=== PATIENT | female | born 1950 | race Caucasian/White ===

== ENCOUNTER 2024-12-10 20:01 | Emergency (ER) | payer OTHER, SELFPAY ==
[2024-12-10 20:08] VITALS: BP 162/102
[2024-12-10 20:56] LABS: ALT (SGPT) 14 U/L (0-35); AST (SGOT) 21 U/L (14-36); Albumin 4.3 g/dl (3.5-5.0); Alkaline Phosphatase 86 U/L (38-126); Blood Urea Nitrogen 21 mg/dl (7-17); Calcium 9.1 mg/dl (8.4-10.2); Carbon Dioxide 25 mmol/L (22-30); Chloride 104 mmol/L (98-107); Glucose 131 mg/dl (70-99); Potassium 4.8 mmol/L (3.5-5.1); Sodium 135 mmol/L (135-145); Total Protein 6.6 g/dl (6.3-8.2); eGFR > 60.00
[2024-12-10 21:05] LABS: Troponin I < 0.012 ng/ml
[2024-12-10 23:27] VITALS: BP 169/94
[2024-12-10 23:33] VITALS: BMI 26.1
[2024-12-11] VITALS: BP 168/88
[2024-12-11 01:00] VITALS: BP 186/110
--- NOTE | 2024-12-11 01:47 | ED.GENMED ---
History of Present Illness
General
Chief Complaint: Blood Pressure Problem
Source: patient
Exam Limitations: none
Time Seen by Provider: 12/11/24 00:42
Nursing documentation reviewed up to this point in time: agreed with
History of Present Illness
History of Present Illness:
74-year-old female past medical history of hypertension hyperlipidemia presenting to the emergency department today with concerns of elevated blood pressure over the past few days. Went to urgent care recently for an injury had a blood pressure in
the 180s over 110s and has been checking this multiple times daily since. Blood pressure in the 160s over 100s today but prompted to come to the ER. Patient is asymptomatic has no chest pain shortness of breath numbness weakness changes in
urination changes in vision or headache. Does have a history of high blood pressure and recently discontinued losartan.
Review of Systems
Review of Systems
Allergies reviewed?: Yes
All Other Systems: ROS reviewed and negative except as documented in HPI and ROS
Phy Exam
Physical Exam
Physical Exam:
GENERAL: Alert , in no apparent distress
EYE: pupils equal and reactive
NECK: Supple, no significant adenopathy.
ENT: o/p clr, mmm.
CARDIAC: Regular rate and rhythm .
LUNGS: Clear breath sounds bilaterally, no acute respiratory distress, no wheezes/rales/rhonchi
ABDOMEN: Soft, without focal tenderness, no r/g, no cvat
NEUROLOGICAL: Alert and oriented, no focal neuro deficits
SKIN: Warm and dry, skin intact.
MUSCULOSKELETAL: No edema, well perfused.
PSYCH: Normal and appropriate interaction.
Course
Orders/Labs/Results
Orders:
Orders
12/10/24 20:13
Electrocardiogram (*1) Urgent
Reason for Study: Chest Pain
EKG- Treatment ONCE
12/10/24 20:31
Comprehensive Metabolic Panel Urgent
Troponin I Urgent
12/10/24 20:53
Complete Blood Count/With Diff Urgent
12/11/24 01:43
Losartan [Cozaar] 25 mg PO NOW STA
12/11/24 01:47
Losartan [Cozaar] 25 mg PO NOW STA
Abnormal Lab Results
12/10/24
20:31
BUN 21 H mg/dl
(7-17)
Glucose 131 H mg/dl
(70-99)
12/10/24 20:31
Vital Signs
Initial and Last Documented VS:
Initial Vital Signs
Temp Pulse Resp BP Pulse Ox
97.6 F 76 16 162/102 97
12/10/24 20:08 12/10/24 20:08 12/10/24 20:08 12/10/24 20:08 12/10/24 20:08
Last Documented Vital Signs
Temp Pulse Resp BP Pulse Ox
98.1 F 70 18 169/94 97
12/10/24 23:27 12/10/24 23:30 12/10/24 23:30 12/10/24 23:27 12/10/24 23:30
MDM/Problems Addressed
MDM/Problems Addressed:
74-year-old female presenting to the emergency department today with concerns of elevated blood pressure at home. Patient is asymptomatic. Blood pressure in 160s over low 100s here other vital signs are normal. Labs unremarkable. EKG normal. No
evidence of any emergent pathology at this time. She recently discontinued losartan. Plan to restart that medication. Otherwise will need close outpatient follow-up. Return precautions given.
*Pulse Oximetry
SaO2: 97
Oxygen Mode of Delivery: Room air
Patient hypoxic: no (97)
*Critical Care Note
Total Time (30-74mins, 75-104mins- exclusive of procedures): Not Applicable
ED Attending Note
-
Portions of this chart may have been created with voice recognition software.� Occasional wrong word or��sound alike� substitutions may have occurred due to the inherent limitations of voice recognition software.
Discharge Plan
Departure
Patient Disposition: Home (Routine Discharge)
Date of Disposition: 12/11/24
Time of Disposition: 01:50
Patient with high blood pressure during this ER visit?: Yes
Condition: Good
Covid-19: Not Applicable
Discharge Problem:
High blood pressure
Instructions: BLOOD PRESSURE
Prescriptions:
New
losartan 25 mg tablet
25 mg PO DAILY 14 Days Qty: 14 0RF
Referrals:
[facility] [Provider Group] - Follow up in 5-7 days
Luh Arreguin DO [Family Provider, Family Practice]
Activity Restrictions/Additional Instructions:
You came to the emergency department today with concerns of high blood pressure. You were restarted on losartan. Please take the medication once daily and follow-up close with the primary care doctor. Return for any worsening, new or concerning
symptoms.
Interventions
Interventions:
*Risk Screen - Suicide Last Done: 12/10/24 20:08
*General Assessment Last Done: 12/10/24 23:29
*Neglect/Abuse Screening Last Done: 12/10/24 23:29
*ED- Fall Risk Assessment Last Done: 12/10/24 23:29
*ED COVID-19 Vaccine History Last Done: 12/10/24 23:29
ED- Cardiac Assessment Last Done: 12/10/24 23:31
ED- Neurological Assessment Last Done: 12/10/24 23:31
ED- Pulmonary Assessment Last Done: 12/10/24 23:31
Discharge Date and Time
Print Language: SLOVAK
[2024-12-11 02:06] VITALS: BP 159/124
[2024-12-11 02:07] VITALS: BP 183/101
[2024-12-11] MEDS: COZAAR 25 MG PO (02:07)
== END 2024-12-11 02:17 | disposition home or self-care (01) ==
LOC: EMR 20:01
PROVIDERS: Emergency Medicine; EMERGENCY PHYSICIAN Student in an Organized Health Care Education/Training Program; FAMILY PHYSICIAN Family Medicine
DX: I10 Essential (primary) hypertension (principal); E78.5 Hyperlipidemia, unspecified
CPT/HCPCS: 99284; 80053; 84484; 93005

== ENCOUNTER → 2025-02-28 11:49 | Outpatient (REF) | payer OTHER, SELFPAY | LOC: HWRCS 11:49 | PROVIDERS: ATTENDING PHYSICIAN Internal Medicine; FAMILY PHYSICIAN Family Medicine | DX: I48.0 Paroxysmal atrial fibrillation (principal); R06.09 Other forms of dyspnea; I10 Essential (primary) hypertension | CPT/HCPCS: 78452; 93017; A9500; J2785 ==

== ENCOUNTER → 2025-03-06 14:53 | Outpatient (REF) | payer OTHER, SELFPAY | LOC: HWRCS 14:53 | PROVIDERS: ATTENDING PHYSICIAN Internal Medicine; FAMILY PHYSICIAN Family Medicine | DX: I48.0 Paroxysmal atrial fibrillation (principal); R06.09 Other forms of dyspnea; I10 Essential (primary) hypertension | CPT/HCPCS: 93306 ==

== ENCOUNTER → 2025-03-10 10:07 | Outpatient (REF) | payer OTHER, SELFPAY | LOC: RCS 10:07 | PROVIDERS: ATTENDING PHYSICIAN Internal Medicine; FAMILY PHYSICIAN Family Medicine | DX: I48.0 Paroxysmal atrial fibrillation (principal); R06.09 Other forms of dyspnea; I10 Essential (primary) hypertension | CPT/HCPCS: 93225; 93226 ==